=== PATIENT | female | born 1985 | race Two or more races ===

== ENCOUNTER 2017-02-27 10:14 | Emergency (ER) | payer OTHER, MEDICAID ==
[~2017-02-27] VITALS: Ht 160 cm; Wt 40.8 kg
[~2017-02-27 10:14] MED LIST: PRENAVITE TABLETS
[2017-02-27 10:24] VITALS: BP 106/79
== END 2017-02-27 11:22 | disposition home or self-care (01) ==
LOC: ER 10:14
DX: J02.9 Acute pharyngitis, unspecified (principal)